=== PATIENT | male | born 1985 | race Asian ===

== ENCOUNTER 2019-09-10 08:54 | Outpatient (CLI) | payer BC | END 2019-09-10 08:55 | disposition home or self-care (01) | LOC: CTENTCT 08:54 | PROVIDERS: ATTEND Student in an Organized Health Care Education/Training Program | DX: J32.9 Chronic sinusitis, unspecified (principal) | CPT/HCPCS: 70486 ==

== ENCOUNTER 2020-09-14 11:15 | Day surgery (SDC) | payer BC ==
[2020-09-11 13:47] VITALS: BMI 25.8
[2020-09-14] MEDS ORDERED: Midazolam HCl 2 mg/2 ml Vial ONE (11:40)
--- NOTE | 2020-09-14 12:40 | MRI ---
MR CERVICAL SPINE WITHOUT CONTRAST INDICATION: Cervicalgia TECHNIQUE: Multiplanar multisequence MR images were obtained of the cervical spine without contrast. COMPARISON: Cervical spine radiograph dated May 11, 2020 from [facility] FINDINGS: Posterior fossa: Within normal limits. Bone marrow signal intensity: Normal Spinal alignment: Normal. Craniocervical junction: Normal appearing. Prevertebral and perivertebral soft tissues: Visualized soft tissues appear within normal limits. Vertebral levels: C2-C3: No appreciable central canal or neuroforaminal narrowing. C3-4: No appreciable central canal or neuroforaminal narrowing. C4-5: No appreciable central canal or neuroforaminal narrowing. C5-C6: No appreciable central canal or neuroforaminal narrowing. C6-C7: No appreciable central canal or neuroforaminal narrowing. C7-T1: No appreciable central canal or neuroforaminal narrowing. IMPRESSION: 1. No appreciable central canal or neuroforaminal narrowing.
[2020-09-14] MEDS ORDERED: PROPOFOL 200 MG/20 ML VIAL ONE (15:42)
[2020-09-14] MEDS ORDERED: Lidocaine 1% PF 5 ML VIAL ONE (15:42)
== END 2020-09-14 13:50 | disposition home or self-care (01) ==
LOC: SDC/OP 11:15
PROVIDERS: ATTEND Orthopaedic Surgery
DX: M54.2 Cervicalgia (principal); K21.9 Gastro-esophageal reflux disease without esophagitis; Z88.6 Allergy status to analgesic agent
CPT/HCPCS: 72141; J2250; J2704